=== PATIENT | male | born 1990 | race Caucasian/White ===

== ENCOUNTER 2017-11-15 04:45 | Emergency (ER) | payer OTHER, MEDICAID ==
[~2017-11-15] VITALS: Ht 175.3 cm; Wt 77.6 kg
[2017-11-15 04:54] VITALS: BP 125/81
[2017-11-15 06:29] VITALS: BP 119/79
== END 2017-11-15 06:28 | disposition home or self-care (01) ==
LOC: MED 04:45
DX: T16.2XXA Foreign body in left ear, initial encounter (principal); H66.92 Otitis media, unspecified, left ear; X58.XXXA Exposure to other specified factors, initial encounter; Y93.89 Activity, other specified; Y92.89 Other specified places as the place of occurrence of the external cause; Y99.8 Other external cause status
CPT/HCPCS: 99283